=== PATIENT | female | born 1950 | race Two or more races ===

== ENCOUNTER 2017-06-28 10:58 | Outpatient (CLI) | payer OTHER ==
--- NOTE | 2017-06-28 13:30 | XRAY Report ---
TWO VIEW LEFT HUMERUS: 06/28/2017 CLINICAL INDICATION: Upper arm pain. FINDINGS: Frontal and lateral views of the left humerus demonstrate no evidence of fracture or dislocation. The joint spaces appear unremarkable. No radiopaque foreign body is seen in the soft tissues. IMPRESSION: NORMAL LEFT HUMERUS. TD: 06/28/2017 13:29
== END 2017-06-28 10:59 | disposition home or self-care (01) ==
LOC: DI 10:58
PROVIDERS: ATTEND Internal Medicine
DX: M79.602 Pain in left arm (principal)

== ENCOUNTER 2018-03-24 16:19 | Outpatient (CLI) | payer MEDICARE, OTHER | END 2018-03-24 23:59 | disposition home or self-care (01) | LOC: LAB.R 16:19 | PROVIDERS: ATTEND Obstetrics & Gynecology | DX: Z01.419 Encounter for gynecological examination (general) (routine) without abnormal findings (principal) | CPT/HCPCS: 87480; 87510; 87660 ==

== ENCOUNTER 2020-06-27 07:00 | Outpatient (CLI) | payer MEDICARE ==
--- NOTE | 2020-06-27 09:34 | XRAY Report ---
PROCEDURE: Shoulder 3 View RT INDICATIONS: R SHOULDER PX TECHNIQUE: 4 views of the shoulder were acquired. COMPARISON: None. FINDINGS: Bones: No fractures or dislocations. No suspicious bony lesions. Visualized ribs appear intact. M oderate AC joint space narrowing. Scattered subchondral sclerosis and spurring. Soft tissues: No suspicious soft tissue calcifications. IMPRESSION: Moderate AC joint degeneration. If the patient's pain or other symptoms persist, consider further gokul luation with MRI. Reviewed by: Augusto White MD on 06/27/2020 9:33 AM PDT Approved by: Augusto White MD on 06/27/2020 9:33 AM PDT Station ID: [id number]
== END 2020-06-27 23:59 | disposition home or self-care (01) ==
LOC: DI.N 07:00
PROVIDERS: ATTEND Orthopaedic Surgery
DX: M19.011 Primary osteoarthritis, right shoulder (principal)